=== PATIENT | female | born 1995 | race Hispanic/Latino ===

== ENCOUNTER 2017-11-28 11:08 | Inpatient (IN) | payer OTHER ==
[2017-11-28 11:42] VITALS: BMI 33.7
[2017-11-28] MEDS ORDERED: Promethazine HCl 25 MG/ML VIAL IM PRN (12:55)
[2017-11-28] MEDS ORDERED: Butorphanol Tartrate 1 MG/ML VIAL SLOW IVP PRN (12:55)
[2017-11-28] MEDS ORDERED: Ondansetron HCl/PF 4 MG/2 ML Vial IVP PRN (12:55)
[2017-11-28] MEDS ORDERED: Calcium Gluc 4.6 MEQ/10 ML (100 MG/ML) IV PRN (12:59)
[2017-11-28] MEDS ORDERED: Magnesium Sulfate 20 gm/500 ml 4 GM/100 ML BAG IVPB ONE (12:59)
[2017-11-28] MEDS: NS w/ Oxytocin 10 units 500 ML IVPB SCH (13:21)
[2017-11-28] MEDS: Lactated Ringer's 1,000 ML IV SCH ×2 (13:21→23:51)
[2017-11-28 13:22] LABS: #Basophils 0.1 thou/uL (0.0-0.2); #Eosinphils 0.1 thou/uL (0.0-0.7); #Lymphocytes 1.9 thou/uL (1.20-3.40); #Monocytes 0.5 thou/uL (0.11-0.59); #Neutrophils 9.2 thou/uL (1.40-6.50); %Basophils 0.8 % (0.0-1.0); %Eosinophils 0.6 % (0.0-10.0); %Lymphocytes 16.4 % (21.0-51.0); %Monocytes 4.3 % (0.0-10.0); Hemoglobin 13.4 g/dL (12.0-16.0); Mean Corpuscular Hemoglobin 29.6 pg (27.0-31.0); Mean Corpuscular Volume 84.6 fL (78.0-98.0); Mean Platelet Volume 10.9 fL (7.4-10.4); Platelet Count 204 thou/uL (130-400); RBC Distribution Width 13.3 % (11.5-14.5); Red Blood Cell (RBC) Count 4.53 mill/uL (4.20-5.40); White Blood Cell (WBC) Count 11.7 thou/uL (4.8-10.8)
[2017-11-28 13:45] LABS: ALT (SGPT) 17 U/L (8-55); AST (SGOT) 14 U/L (5-34); Albumin 3.8 g/dL (3.5-5.0); Alkaline Phosphatase 179 U/L (40-150); Anion Gap 12 mmol/L (10-20); BUN (Urea Nitrogen) 9 mg/dL (7.0-18.7); Bilirubin, Total 0.4 mg/dL (0.2-1.2); Calc. Creatinine Clearance 173 mL/min (70-130); Calcium 10.1 mg/dL (7.8-10.44); Carbon Dioxide 23 mmol/L (22-29); Chloride 106 mmol/L (98-107); Estimated GFR-MDRD Greater than 90; Globulin 2.8 g/dL (2.4-3.5); Glucose 77 mg/dL (70-105); Potassium 4.2 mmol/L (3.5-5.1); Protein, Total 6.6 g/dL (6.0-8.3); Sodium 137 mmol/L (136-145); Uric Acid 6.9 mg/dL (2.6-6.0)
[2017-11-28 14:05] LABS: HBSAg Index 0.15 S/CO (0-0.99); Hep B Surf Ag Non-Reactive S/CO (NonReactive)
[2017-11-28 14:08] LABS: Syphilis Antibody Nonreactive (Nonreactive); Syphilis Antibody Index 0.02 S/CO (<1.00 Non-Reactive)
[2017-11-28] MEDS ORDERED: Calcium Carbonate 500 MG ChewTAB PO PRN ×2 (20:13→20:14)
[2017-11-29] MEDS: NS w/ Oxytocin 10 units 500 ML IVPB SCH (00:17)
[2017-11-29] MEDS: Magnesium Sulfate 20 gm/500 ml 20 GM/500 ML BAG IVPB PRN ×2 (00:18→09:37)
[2017-11-29] MEDS ORDERED: Bicitra 30 ML UDCUP ONE (07:31)
[2017-11-29] MEDS ORDERED: CEFAZOLIN/Water 2 GM/20 ML SYRINGE ONE (07:32)
[2017-11-29] MEDS ORDERED: Carboprost 250 MCG/ML AMP ONE ×2 (08:23→08:30)
[2017-11-29] MEDS ORDERED: Misoprostol 200 MCG TAB ONE (08:28)
[2017-11-29] MEDS ORDERED: Oxytocin 10 UNITS/ML VIAL ONE (08:39)
[2017-11-29] MEDS ORDERED: Fentanyl 100 MCG/2 ML VIAL ONE (08:39)
[2017-11-29] MEDS ORDERED: Ketorolac Tromethamine 30 MG/ML VIAL ONE (08:41)
[2017-11-29] MEDS ORDERED: PHENYLEPHRINE-NS 100 MCG/ML 10 ML SYRINGE ONE (08:41)
[2017-11-29] MEDS ORDERED: Bupivacaine 0.75% W/DEXTROSE 8.25% 2 ML AMP ONE (08:41)
[2017-11-29] MEDS ORDERED: Ondansetron HCl/PF 4 MG/2 ML Vial ONE (08:41)
[2017-11-29] MEDS ORDERED: NS / Oxytocin 40 units/1000ml 1,000 ML ONE (09:33)
[2017-11-29] MEDS ORDERED: Bisacodyl 10 MG SUPP PR PRN (09:40)
[2017-11-29] MEDS ORDERED: Calcium Gluconate 4.6 MEQ in Sodium Chloride 0.9% 100 ML IVPB PRN (09:40)
[2017-11-29] MEDS ORDERED: Simethicone Chewable 80 MG TAB PO PRN (09:40)
[2017-11-29] MEDS ORDERED: Lanolin Ointment 7 GM TUBE TOP PRN (09:40)
[2017-11-29] MEDS ORDERED: NS / Oxytocin 40 units/1000ml 1,000 ML IV SCH (09:40)
[2017-11-29] MEDS ORDERED: Carboprost 250 MCG/ML AMP IM SCH (09:40)
[2017-11-29] MEDS ORDERED: Ondansetron HCl/PF 4 MG/2 ML Vial IVP PRN ×3 (09:40→09:56)
[2017-11-29] MEDS ORDERED: diphenhydrAMINE 25 MG CAP PO PRN (09:40)
[2017-11-29] MEDS ORDERED: Meperidine HCl/PF 25 MG/ML VIAL IM PRN (09:40)
[2017-11-29] MEDS ORDERED: Misoprostol 100 MCG TAB VAG SCH (09:40)
[2017-11-29] MEDS ORDERED: HYDROcodone/Acetaminophen 5/325 mg Tablet PO PRN (09:40)
[2017-11-29] MEDS ORDERED: diphenhydrAMINE 50 MG/ML VIAL IVP PRN (09:56)
[2017-11-29] MEDS ORDERED: Naloxone HCl 0.4 mg/ml Vial IV PRN (09:56)
[2017-11-29] MEDS ORDERED: Meperidine HCl/PF 25 MG/ML VIAL SLOW IVP PRN (09:56)
[2017-11-29] MEDS ORDERED: HYDROmorphone 2 MG/ML VIAL SLOW IVP PRN (09:56)
[2017-11-29] MEDS ORDERED: Naloxone HCl 0.4 mg/ml Vial IVP PRN ×2 (09:56)
[2017-11-29] MEDS ORDERED: Promethazine HCl 25 MG/ML VIAL IM PRN (09:56)
[2017-11-29] MEDS ORDERED: Promethazine HCl 25 MG SUPP PR PRN (09:56)
[2017-11-29] MEDS ORDERED: Eucerin (Mineral Oil/Petrolatum,White) 30 gm Jar TOP PRN (09:56)
[2017-11-29] MEDS ORDERED: Ketorolac Tromethamine 30 MG/ML VIAL IVP PRN (09:56)
[2017-11-29] MEDS ORDERED: Ketorolac Tromethamine 30 MG/ML VIAL IVP SCH (10:00)
[2017-11-29] MEDS ORDERED: Communication Order-Pharmacy FS SCH (10:00)
[2017-11-29] MEDS: Lactated Ringer's 1,000 ML IV SCH ×2 (10:07→23:22)
[2017-11-29] MEDS: Ibuprofen 800 MG TAB PO SCH (10:14)
[2017-11-29] MEDS ORDERED: Misoprostol 200 MCG TAB VAG SCH (12:45)
[2017-11-29] MEDS ORDERED: Misoprostol 200 MCG TAB PO SCH (13:00)
[2017-11-29] MEDS: Magnesium Sulfate 20 gm/500 ml 20 GM/500 ML BAG IVPB SCH (20:13)
[2017-11-29] MEDS: Ferrous Sulfate 325 MG TAB PO SCH (22:04)
--- NOTE | 2017-11-29 22:23 | OP ---
DATE OF PROCEDURE: 11/29/2017 PREOPERATIVE DIAGNOSES: 1. A 37-week . 2. Premature rupture of membranes. 3. Preeclampsia. 4. Failure to progress in labor. POSTOPERATIVE DIAGNOSES: 1. A 37-week . 2. Premature rupture of membranes. 3. Preeclampsia. 4. Failure to progress in labor. 5. Uterine atony. PROCEDURE PERFORMED: Primary low-cervical transverse section. SURGEON: Matteo Rubio M.D. WEIGHT RECORDER: Dr. Oreilly. ANESTHESIA: Spinal. DESCRIPTION OF EVENTS: After informed consent was obtained from the patient, she was taken to the op erating room, where spinal anesthesia was administered. She was prepped and draped in the usual ster ile fashion. A Pfannenstiel incision was created with a #10 scalpel blade and carried down to the fa scia. The fascia was nicked in the midline, and the fascial incision was extended transversely with De La Fuente scissors. The superior fascial segment was grasped with Kochers and elevated and the underlying muscles were dissected free, first bluntly and then sharply. Underlying rectus muscles were dissect ed free, first bluntly and then sharply. This was repeated with the inferior fascial segment. The r ectus muscles were divided in the midline bluntly, the peritoneum was also entered bluntly. Bladder blade was inserted. The uterus was entered in a low transverse fashion with a clean #10 scalpel blad e. Clear amniotic fluid was encountered. The hysterotomy was extended superolaterally with blunt di ssection. vertex delivered onto the operative field. The remainder of the delivered at raumatically and uneventfully. The oropharynx and nares were bulb suctioned, delayed, cord clamping for 30 seconds. The was handed to the staff in attendance. Cord blood was obtained. The placenta was manually extracted. The uterus was somewhat atonic after delivery; however, there was not much bleeding apart from the hysterotomy site. Hemabate was given along with 800 mcg of Cyt otec were given as well. Hemabate was repeated. Uterus was then repaired with a running suture of 0 Vicryl in a single full-thickness layer. Three interrupted utoyey-vr-vavhy sutures of 0 Vicryl were placed for hemostasis, which was observed. The abdomen was copiously irrigated with saline. The ut erus was returned to the abdomen. Hemostasis was observed. Seprafilm was applied to the repaired ut erine incision and anterior uterine fundus. Uterine tone was normal with a well-contracted uterus up on returning the uterus to the abdomen. The peritoneum was repaired with a running suture of 3-0 Jamaal ryl. The fascia was repaired with a running suture of 0 PDS. Three interrupted sutures of 3-0 Vicry l were placed in the subdermal area to reapproximate the skin, which was closed with skin azalea. S ponges and instruments were correct x3. A second dose of Hemabate was given 15 [address] with scant bleeding noted, ,. The infant was taken to the nursery in stable condition a nd the patient to recovery room in stable condition. FINDINGS: Viable female , Apgars 8 and 9 at one and five minutes. COMPLICATIONS: Uterine atony without hemorrhage, good response to Hemabate x2 and Cytotec 800 mcg x1 . SPECIMENS: Placenta to pathology.
[2017-11-29] MEDS: Docusate Calcium (SURFAK) 240 MG CAP PO SCH (23:23)
[2017-11-30] MEDS: Ibuprofen 800 MG TAB PO SCH ×5 (01:11→21:42)
[2017-11-30] MEDS: Magnesium Sulfate 20 gm/500 ml 20 GM/500 ML BAG IVPB SCH (06:21)
[2017-11-30] MEDS: HYDROcodone/Acetaminophen 5/325 mg Tablet PO PRN ×4 (07:27→21:43)
[2017-11-30 07:35] LABS: Hemoglobin 8.9 g/dL (12.0-16.0); Mean Corpuscular HGB CONC 32.2 g/dL (32.0-36.0); Mean Platelet Volume 10.4 fL (7.4-10.4); Platelet Count 155 thou/uL (130-400); RBC Distribution Width 13.3 % (11.5-14.5); Red Blood Cell (RBC) Count 3.17 mill/uL (4.20-5.40); White Blood Cell (WBC) Count 11.1 thou/uL (4.8-10.8)
[2017-11-30] MEDS: Prenatal Vitamin 1 TAB PO SCH (10:30)
[2017-11-30] MEDS: Ferrous Sulfate 325 MG TAB PO SCH ×2 (10:30→21:42)
[2017-11-30] MEDS: Docusate Calcium (SURFAK) 240 MG CAP PO SCH ×2 (10:30→21:43)
[2017-12-01] MEDS: Ibuprofen 800 MG TAB PO SCH ×3 (05:45→21:33)
[2017-12-01] MEDS: HYDROcodone/Acetaminophen 5/325 mg Tablet PO PRN ×4 (05:45→19:28)
[2017-12-01] MEDS: Ferrous Sulfate 325 MG TAB PO SCH ×2 (09:06→21:33)
[2017-12-01] MEDS: Prenatal Vitamin 1 TAB PO SCH (09:06)
[2017-12-01] MEDS: Docusate Calcium (SURFAK) 240 MG CAP PO SCH ×2 (09:07→21:33)
[2017-12-02] MEDS: Ibuprofen 800 MG TAB PO SCH ×2 (05:32→14:21)
[2017-12-02] MEDS: HYDROcodone/Acetaminophen 5/325 mg Tablet PO PRN ×3 (05:33→14:22)
[2017-12-02 08:32] VITALS: BP 118/64; TEMP 98.4
[2017-12-02] MEDS: Ferrous Sulfate 325 MG TAB PO SCH (09:22)
[2017-12-02] MEDS: Prenatal Vitamin 1 TAB PO SCH (09:22)
[2017-12-02] MEDS: Docusate Calcium (SURFAK) 240 MG CAP PO SCH (09:22)
== END 2017-12-02 15:40 | disposition home or self-care (01) | DRG 766 ==
LOC: L&D/OP 11:08 → L&D 11:20 → 3SE 11-30 09:51
PROVIDERS: ADMIT Family Medicine; ATTEND Family Medicine
PROC: 10D00Z1 Extraction of Products of Conception, Low, Open Approach (ICD-10-PCS; principal; 2017-11-29)
DX: O14.94 Unspecified pre-eclampsia, complicating childbirth (principal); Z3A.37 37 weeks gestation of pregnancy; Z37.0 Single live birth; O42.92 Full-term premature rupture of membranes, unspecified as to length of time between rupture and onset of labor; O72.1 Other immediate postpartum hemorrhage; O62.1 Secondary uterine inertia
CPT/HCPCS: 36415; 51702; 80053; 81003; 82570; 83735; 84550; 85025; 85027; 86780; 86850; 86900; 86901; 87340; 88307; A4216; J1885; J2405; J2590; J3010; J3475; J3490